=== PATIENT | female | born 2000 | race Caucasian/White ===

== ENCOUNTER 2021-06-09 09:52 | Outpatient (CLI) | payer OTHER ==
[2021-06-09 09:59] LABS: BILIRUBIN,URINE NEGATIVE (NEGATIVE); GLUCOSE, URINE (UA) NEGATIVE (NEGATIVE); KETONES,URINE (UA) NEGATIVE (NEGATIVE); LEUKOCYTE ESTERASE, URINE NEGATIVE (NEGATIVE); NITRITE,URINE NEGATIVE (NEGATIVE); OCCULT BLOOD,URINE NEGATIVE (NEGATIVE); PROTEIN,URINE NEGATIVE (NEGATIVE); UROBILINOGEN,URINE 0.2 (NORMAL) E.U./dL (NORMAL)
[2021-06-09 10:00] LABS: CLARITY,URINE CLEAR (CLEAR)
== END 2021-06-09 09:53 | disposition home or self-care (01) ==
LOC: LAB 09:52
PROVIDERS: ATTEND Obstetrics & Gynecology
DX: Z32.01 Encounter for pregnancy test, result positive (principal)
CPT/HCPCS: 81001; 81003; 87086

== ENCOUNTER 2021-06-28 16:56 | Outpatient (CLI) | payer OTHER ==
--- NOTE | 2021-06-29 12:48 | Ultrasound Report ---
PROCEDURE: OB First Trimester INDICATIONS: positive test OUTSIDE/PRIOR DATING DATA: Last menstrual period (LMP): Unknown. LMP-based estimated date of delivery (STACI): Unknown LMP. First dating scan (date and location): 06/28/2021. Estimated date of delivery (STACI) from first dating scan: 02/02/2022. The below data below was generated using the ultrasound STACI of 02/02/2022 TECHNIQUE: Real-time scanning was performed of the fetus and maternal pelvic organs, with image documentation. COMPARISON: None FINDINGS: A single viable intrauterine is seen with a heart rate of 162. An adjac ent 2.4 x 1.1 x 1.4 cm subchorionic hemorrhage is noted. Friedens-rump length: 2.1 cm. 8 weeks 5 days. Mean gestational sac diameter: 3.3 cm. 8 weeks 3 days. Measurement variability in dating: +/- 4 weeks by LMP, +/- 7 days by mean sac diameter (use before 6 weeks gestation if crown-rump length not able to be measured), +/- 5 days by crown-rump length (6-12 weeks gestation). Maternal organs: There is a small amount of free fluid. IMPRESSION: Single live intrauterine with a gestational age of 8 weeks 5 days by crown-rump length. Reviewed by: Terrence Gibbs on 06/29/2021 12:47 PM PDT Approved by: Terrence Gibbs on 06/29/2021 12:47 PM PDT Station ID: [id number]
== END 2021-06-28 16:57 | disposition home or self-care (01) ==
LOC: DI 16:56
PROVIDERS: ATTEND Obstetrics & Gynecology
DX: Z32.01 Encounter for pregnancy test, result positive (principal)

== ENCOUNTER 2021-06-30 08:00 | Outpatient (CLI) | payer OTHER ==
[2021-07-02 00:15] LABS: CHLAMYDIA TRACHOMATIS DNA NEGATIVE (NEGATIVE); NEISSERIA GONORRHOEAE DNA NEGATIVE (NEGATIVE); TRICHOMONAS VAGINALIS DNA NEGATIVE (NEGATIVE)
== END 2021-06-30 23:59 | disposition home or self-care (01) ==
LOC: LAB.WC 08:00
PROVIDERS: ATTEND Obstetrics & Gynecology
DX: Z11.3 Encounter for screening for infections with a predominantly sexual mode of transmission (principal)
CPT/HCPCS: 87491; 87591; 87661

== ENCOUNTER 2021-11-10 15:46 | Outpatient (CLI) | payer OTHER ==
[2021-11-10 17:12] LABS: HCT - HEMATOCRIT 33.3 % (37.0-47.0); HGB - HEMOGLOBIN 11.3 g/dL (12.0-16.0); MEAN CORPUSCULAR HEMOGLOBIN 31.8 pg (27.0-31.0); MEAN CORPUSCULAR HGB CONC 33.9 g/dL (32.0-36.0); MEAN CORPUSCULAR VOLUME 93.8 fL (81.0-99.0); MEAN PLATELET VOLUME 11.8 fL (7.9-10.8); RED BLOOD COUNT 3.55 10^6/uL (4.20-5.40); RED CELL DISTRIBUTION WIDTH 12.8 % (12.0-15.0); WHITE BLOOD COUNT 10.9 x10^3/uL (4.8-10.8)
== END 2021-11-10 15:47 | disposition home or self-care (01) ==
LOC: LAB 15:46
PROVIDERS: ATTEND Obstetrics & Gynecology
DX: Z34.90 Encounter for supervision of normal pregnancy, unspecified, unspecified trimester (principal); Z36.89 Encounter for other specified antenatal screening
CPT/HCPCS: 36415; 82950; 85027

== ENCOUNTER 2021-12-08 06:44 | Outpatient (CLI) | payer OTHER ==
--- NOTE | 2021-12-08 11:46 | Ultrasound Report ---
PROCEDURE: OB F/U or Repeat INDICATIONS: EXCESSIVE WEIGHT GAIN IN OUTSIDE/PRIOR DATING DATA: Last menstrual period (LMP): Unknown. LMP-based estimated date of delivery (STACI): 02/02/2022. First dating scan (date and location): 06/28/2021. Estimated date of delivery (STACI) from first dating scan: 02/02/2022. The below data below was generated using the ultrasound STACI of 02/02/2022 TECHNIQUE: Real-time scanning was performed of the fetus, with image documentation and biometric measurements. COMPARISON: None. FINDINGS: General: A single living intrauterine gestation is present. Presentation: Cephalic Placenta: Placental position is anterior, without previa. Amniotic fluid index: 13.1 cm. heart rate: 38 beats per minute. Maternal cervical canal: The imaged biometrics: Biparietal diameter: 8.4 cm. 33 weeks 5 days Head circumference: 30.3 cm. 33 weeks 5 days Abdominal circumference: 33.3 cm. 34 weeks 2 days Femur length: 6.0 cm. 31 weeks 1 day. Estimated gestational age from initial scan: 32 weeks 0 days. Composite gestational age from present scan: 33 weeks 2 days Estimated weight and percentile: 2167 g. 80.6 percentile Measurement variability in biometric dating: +/- 10 days from 12-20 weeks gestation, +/- 2 weeks from 20-30 weeks gestation, +/- 3 weeks at 30 weeks gestation or more. anatomy survey. Neuro: Not evaluated Nuchal skin fold: Not evaluated Face: Not evaluated Spine: Not evaluated Heart: Not evaluated Diaphragm: Diaphragm is intact. Stomach: Left-sided stomach is present. Kidneys: Not evaluated Cord: Not evaluated Bladder: Normal in size. IMPRESSION: 1. Single live intrauterine with an estimated gestational age of 32 weeks 0 days from initi al scan. 2. Estimated weight 2167 g. 80.6 percentile. 3. ANDREW 13.1 cm. Reviewed by: Terrence Gibbs on 12/08/2021 11:45 AM PDT Approved by: Terrence Gibbs on 12/08/2021 11:45 AM PDT Station ID: [id number]
== END 2021-12-08 06:45 | disposition home or self-care (01) ==
LOC: DI 06:44
PROVIDERS: ATTEND Obstetrics & Gynecology
DX: O26.03 Excessive weight gain in pregnancy, third trimester (principal); Z3A.32 32 weeks gestation of pregnancy

== ENCOUNTER 2022-01-12 13:00 | Outpatient (CLI) | payer OTHER | END 2022-01-12 23:59 | disposition home or self-care (01) | LOC: LAB.WC 13:00 | PROVIDERS: ATTEND Obstetrics & Gynecology | DX: Z36.85 Encounter for antenatal screening for Streptococcus B (principal) | CPT/HCPCS: 87797 ==

== ENCOUNTER 2022-01-12 20:17 | Outpatient (CLI) | payer OTHER ==
--- NOTE | 2022-01-13 12:23 | Ultrasound Report ---
PROCEDURE: OB F/U or Repeat INDICATIONS: EXCESSIVE WEIGHT GAIN IN TECHNIQUE: Real-time scanning was performed of the fetus, with image documentation and biometric measurements. Endovaginal scanning: Not performed COMPARISON: 12/08/2021 FINDINGS: General: A single living intrauterine gestation is present. Presentation: Vertex Placenta: Placental position is anterior, without previa. Amniotic fluid index: 10.7 cm, normal for gestational age. heart rate: 136 beats per minute. biometrics: Biparietal diameter: 9.3 cm Head circumference: 34.6 cm Abdominal circumference: 34.5 cm Femur length: 7.1 cm Estimated gestational age from initial scan: 37 weeks zero days Composite gestational age from present scan: 38 weeks one day Estimated weight and percentile: 3372 g, 81st percentile Measurement variability in biometric dating: +/- 10 days from 12-20 weeks gestation, +/- 2 weeks from 20-30 weeks gestation, +/- 3 weeks at 30 weeks gestation or more. Other: Not applicable. IMPRESSION: Single living intrauterine gestation with biometric parameters as detailed above. Reviewed by: Wilson Watters MD on 01/13/2022 12:22 PM PST Approved by: Wilson Watters MD on 01/13/2022 12:22 PM PST Station ID: [id number]
== END 2022-01-12 20:18 | disposition home or self-care (01) ==
LOC: DI 20:17
PROVIDERS: ATTEND Obstetrics & Gynecology
DX: O26.03 Excessive weight gain in pregnancy, third trimester (principal); Z3A.38 38 weeks gestation of pregnancy

== ENCOUNTER 2022-01-15 13:06 | Outpatient (CLI) | payer OTHER ==
[2022-01-15 13:24] VITALS: BP 116/71
[2022-01-15 13:56] LABS: RUPTURE OF MEMBRANES PLUS NEGATIVE (NEGATIVE)
--- NOTE | 2022-01-15 15:55 | PROVIDER PROGRESS NOTE ---
- HPI Chief Complaint: Leakage of vaginal fluid Current : Current EDU 02/02/22 Gestation 37 Weeks and 3 Days 1 Para 0 Vital Signs Temperature 98.2 F 01/15/22 13:23 Heart Rate 89 01/15/22 13:23 Respiratory Rate 17 01/15/22 13:23 Blood Pressure 116/71 01/15/22 13:23 O2 Saturation 100 01/15/22 13:23 Temperature 98.1 F 01/15/22 13:52 Heart Rate 89 01/15/22 13:23 Respiratory Rate 17 01/15/22 13:23 Blood Pressure 116/71 01/15/22 13:23 O2 Saturation 100 01/15/22 13:23 If not protocol: Oxygen Flow, liters/minute - Procedures OB Procedure Performed: NST Diagnosis/Indication for NST: Other NST Procedure: NST Procedure Start Date 01/15/22 Start Time 13:20 Stop Time 13:50 Vibroacoustic Stimulation Used No Patient States Movement Yes EFM: 150s, moderate variability, positive accelerations, no decelerations [place]ar[place]: no contractions NST performed as part of labor evaluation NST reactive/Cat 1 Performed and read 01/15/22 - Plan Plan: 21yo at 37.3w presenting for leaking fluid. She has noticed vaginal fluid since last night and thinks it has continued today. Denies contractions or vaginal bleeding. Good movement. care at [facility] and records reviewed. VSS Exam benign ROMPlus negative Nitrazine negative NST reactive 21yo at 37.3w, false labor - Reactive NST - Follow up as scheduled this week in the office - Labor precautions
== END 2022-01-15 14:15 | disposition home or self-care (01) ==
LOC: WFO 13:06 → FBP 13:07 → WFO 14:15
PROVIDERS: ATTEND Obstetrics & Gynecology
DX: O99.891 Other specified diseases and conditions complicating pregnancy (principal); N89.8 Other specified noninflammatory disorders of vagina; Z3A.37 37 weeks gestation of pregnancy
CPT/HCPCS: 59025; 84112; 99214

== ENCOUNTER 2022-01-18 03:51 | Inpatient (IN) | payer OTHER, MEDICAID ==
[2022-01-18 05:09] LABS: RUPTURE OF MEMBRANES PLUS POSITIVE (NEGATIVE)
[2022-01-18] MEDS ORDERED: NIFEdipine 10 MG CAPSULE PO PRN (05:30)
[2022-01-18] MEDS ORDERED: METHYLERGONOVINE 0.2 MG/ML VIAL IM PRN (05:30)
[2022-01-18] MEDS ORDERED: ONDANSETRON 4 MG/2 ML VIAL IVP PRN (05:30)
[2022-01-18] MEDS ORDERED: CARBOPROST TROMETHAMINE 250 MCG/ML AMP IM PRN (05:30)
[2022-01-18] MEDS ORDERED: LABETALOL 20 MG/4 ML SYRINGE IVP PRN ×3 (05:30)
[2022-01-18] MEDS ORDERED: hydrALAZINE INJ 20 MG/ML VIAL IVP PRN ×2 (05:30)
[2022-01-18] MEDS ORDERED: TRANEXAMIC ACID IN NACL 1,000 MG/100 ML BAG IV PRN (05:30)
[2022-01-18] MEDS ORDERED: TERBUTALINE 1 MG/ML VIAL SUBQ PRN (05:30)
[2022-01-18] MEDS ORDERED: OXYTOCIN 10 UNIT/ML VIAL IM PRN (05:30)
[2022-01-18] MEDS ORDERED: fentaNYL 100 MCG/2 ML VIAL IVP PRN (05:30)
[2022-01-18] MEDS ORDERED: SODIUM CHLORIDE FLUSH 0.9% 10 ML SYRINGE IVP PRN (05:30)
[2022-01-18] MEDS ORDERED: miSOPROStoL 200 MCG TABLET BC PRN (05:30)
[2022-01-18] MEDS ORDERED: lidocaine 1% 20 ML MDV ID PRN (05:30)
[2022-01-18] MEDS ORDERED: miSOPROStoL 200 MCG TABLET PR PRN (05:30)
[2022-01-18] MEDS ORDERED: LACTATED RINGERS 1,000 ML IV SCH ×2 (06:00→18:00)
[2022-01-18] MEDS ORDERED: SODIUM CHLORIDE FLUSH 0.9% 10 ML SYRINGE IVP SCH (06:00)
[2022-01-18 07:45] LABS: ALBUMIN 2.8 g/dL (3.2-5.5); ALBUMIN/GLOBULIN RATIO 0.8 (1.0-2.2); BILIRUBIN,TOTAL 0.5 mg/dL (0.2-1.0); CALCIUM 9.2 mg/dL (8.5-10.3); CREATININE 0.5 mg/dL (0.4-1.0); POTASSIUM 3.9 mmol/L (3.5-5.0); TOTAL PROTEIN 6.2 g/dL (6.7-8.2)
[2022-01-18 07:46] LABS: BASOPHILS % (AUTO) 0.2 %; EOSINOPHILS % (AUTO) 0.3 %; HCT - HEMATOCRIT 32.4 % (37.0-47.0); LYMPHOCYTES # (AUTO) 2.2 10^3/uL (1.5-3.5); LYMPHOCYTES % (AUTO) 21.7 %; MEAN CORPUSCULAR HEMOGLOBIN 29.6 pg (27.0-31.0); MEAN CORPUSCULAR VOLUME 87.1 fL (81.0-99.0); MEAN PLATELET VOLUME 12.7 fL (7.9-10.8); MONOCYTES # (AUTO) 0.8 10^3/uL (0.0-1.0); MONOCYTES % (AUTO) 7.5 %; PLT - PLATELET COUNT 189 10^3/uL (130-450); RED BLOOD COUNT 3.72 10^6/uL (4.20-5.40)
--- NOTE | 2022-01-18 08:11 | HISTORY & PHYSICAL EXAMINATION ---
Admit History - Visit Reason Visit Reason: Membranes rupture (Premature ROM 0330 01/18) - : 1 Parity: 0 Care: positive: [facility] Risk/History: positive: Labor augmentation, Premature rupture membrane, Other (Excessive weight gain in (56lbs)) Smoking Status: Never smoker - Mother's Labs Mother's Blood Type: positive: O Mother's RH: positive: Positive GBS: positive: Group B Step Negative Rubella Status: positive: Non-immune, Equivocal - Other Maternal History Other Maternal History: Med: Denies Surg: Denies Social: Boyfriend/FOB and patient's mother present, denies AVIS Fam: PGM- Breast cancer, Mother- GDM, Brother- siezures, MGF alcoholism Meds/Allgy - Allergies Allergies/Adverse Reactions: Allergies Allergy/AdvReac Type Severity Reaction Status Date / Time amoxicillin Allergy Rash Verified 01/18/22 06:12 Review of Systems - All Other Systems All Other Systems: reports: Reviewed and negative Physical - Abdominal Exam Vital Signs: Temp Pulse Resp BP Pulse Ox O2 Flow Rate 98.2 F 84 18 120/80 01/18/22 05:38 01/18/22 05:38 01/18/22 05:38 01/18/22 05:38 Contraction Frequency (min/apart): 4 Contraction Intensity: positive: Mild to moderate Uterine Resting Tone: positive: Soft - Monitoring Heart Rate Baseline: 140 Strip Review: positive: Category I - Presentation Presentation: positive: Vertex (3400g Cephalic Placenta anterior) - Vaginal Exam Membranes: positive: Membranes ruptured (01/18 330) Dilation (in cm): 1 Plan for Labor - Plan For Labor I expect patient to be DC'd or transferred within 96 hours.: Yes Plan for Labor: 21yo at 37.6w by 8w US admitted for premature rupture of membranes - Admit - PROM 01/18 330 - Discussed plan with patient, plan for misoprostol this am - Recheck cervix this afternoon/evening - Cat 1, continue to monitor
[2022-01-18] MEDS ORDERED: miSOPROStoL 100 MCG TABLET BC SCH (09:00)
[2022-01-18] MEDS ORDERED: ROPIVACAINE 0.2% 200 MG/100 ML BAG EP ONE (11:25)
[2022-01-18] MEDS ORDERED: SODIUM CHLORIDE 0.9% 10 ML VIAL IVP ONE (11:49)
[2022-01-18] MEDS ORDERED: fentaNYL 100 MCG/2 ML VIAL ONE (11:49)
[2022-01-18] MEDS ORDERED: ePHEDrine 50 MG/ML VIAL IVP PRN (11:54)
[2022-01-18] MEDS ORDERED: NALOXONE 0.4 MG/ML VIAL IVP PRN (11:54)
[2022-01-18] MEDS ORDERED: ROPIVACAINE 0.2% 200 MG/100 ML BAG EP PRN (11:54)
--- NOTE | 2022-01-18 11:54 | ANESTHESIA ---
Pre-Anesthesia VS, & Labs - Diagnosis active labor - Procedure vaginal delivery Vital Signs: Temp Pulse Resp BP Pulse Ox O2 Flow Rate 36.8 C 84 18 120/80 01/18/22 05:38 01/18/22 05:38 01/18/22 05:38 01/18/22 05:38 Height: 5 ft 8 in Weight (kg): 97.522 kg Body Mass Index: 32.6 BMI Classification: Obese - NPO Other (clear liquids) - Is Patient ?: Yes - Lab Results Current Lab Results: Laboratory Tests 01/18/22 07:20: Sodium 134 L, Potassium 3.9, Chloride 104, Carbon Dioxide 20 L, Anion Gap 10.0, BUN 9, Creatinine 0.5, Estimated GFR (MDRD) 153, Glucose 83, Calcium 9.2, Total Bilirubin 0.5, AST 19, ALT 16, Alkaline Phosphatase 127 H, Total Protein 6.2 L, Albumin 2.8 L, Globulin 3.4, Albumin/Globulin Ratio 0.8 L 01/18/22 07:20: WBC 10.0, RBC 3.72 L, Hgb 11.0 L, Hct 32.4 L, MCV 87.1, MCH 29.6, MCHC 34.0, RDW 13.0, Plt Count 189, MPV 12.7 H, Neut # (Auto) 7.0 H, Lymph # (Auto) 2.2, [place] # (Auto) 0.8, Eos # (Auto) 0.0, Baso # (Auto) 0.0, Absolute Nucleated RBC 0.00, Nucleated RBC % 0.0 01/18/22 07:20: Blood Type O POSITIVE, Antibody Screen NEGATIVE Lab results reviewed: Yes Fish Bones: 01/18/22 07:20 01/18/22 07:20 Home Medications and Allergies Active Medications Carboprost Tromethamine (Carboprost Tromethamine 250 Mcg/Ml Amp) 250 mcg IM .ONCE PRN PRN Reason: Hemorrhage Fentanyl (Fentanyl 100 Mcg/2 Ml Vial) 50 mcg IVP Q1H PRN PRN Reason: Severe Pain (score 7-10) Hydralazine HCl (Hydralazine Inj 20 Mg/Ml Vial) 5 - 10 mg IVP Q20M PRN; Protocol PRN Reason: SBP> or= 160 OR DBP> or= 110 Hydralazine HCl (Hydralazine Inj 20 Mg/Ml Vial) 10 mg IVP .ONCE PRN; Protocol PRN Reason: SBP> or= 160 OR DBP> or= 110 Oxytocin/Sodium Chloride (Pitocin/Sodium Chloride) 500 mls @ 999 mls/hr IV PRN PRN; Protocol PRN Reason: POST- HEMORR PREVENTION Tranexamic Acid (Tranexamic 1,000 Mg/100ml-Nacl) 1,000 mg in 100 mls @ 600 mls/hr IV Q30M PRN PRN Reason: EBL >1200mL and within 3hr Lactated Ringer's (Lr) 1,000 mls @ 125 mls/hr IV .Q8H JEREMIAH Oxytocin/Sodium Chloride (Pitocin/Sodium Chloride) 500 mls @ 2 mls/hr IV TITR JEREMIAH; Protocol Labetalol HCl (Labetalol 20 Mg/4 Ml Syringe) 20 - 80 mg IVP Q10M PRN; Protocol PRN Reason: SBP> or= 160 OR DBP> or= 110 Labetalol HCl (Labetalol 20 Mg/4 Ml Syringe) 20 mg IVP .ONCE PRN; Protocol PRN Reason: SBP> or= 160 OR DBP> or= 110 Labetalol HCl (Labetalol 20 Mg/4 Ml Syringe) 20 - 40 mg IVP Q10M PRN; Protocol PRN Reason: SBP> or= 160 OR DBP> or= 110 Lidocaine HCl (Lidocaine 1% 20 Ml Mdv) 20 ml ID .ONCE PRN PRN Reason: PERINEAL REPAIR Stop: 01/21/22 05:31 Methylergonovine Maleate (Methylergonovine 0.2 Mg/Ml Vial) 0.2 mg IM .ONCE PRN PRN Reason: Hemorrhage Misoprostol (Misoprostol 200 Mcg Tablet) 600 mcg BC .ONCE PRN PRN Reason: Hemorrhage Misoprostol (Misoprostol 200 Mcg Tablet) 800 mcg WV .ONCE PRN PRN Reason: Hemorrhage Misoprostol (Misoprostol 100 Mcg Tablet) 50 mcg BC Q4H JEREMIAH Last Admin: 01/18/22 09:41 Dose: 50 mcg Nifedipine (Nifedipine 10 Mg Capsule) 10 - 20 mg PO Q20M PRN; Protocol PRN Reason: SBP> or= 160 OR DBP> or= 110 Ondansetron HCl (Ondansetron 4 Mg/2 Ml Vial) 4 mg IVP PRN PRN PRN Reason: Nausea / Vomiting Oxytocin (Oxytocin 10 Unit/Ml Vial) 10 unit IM .ONCE PRN PRN Reason: Step One if no IV access. Sodium Chloride (Sodium Chloride Flush 0.9% 10 Ml Syringe) 10 ml IVP PRN PRN PRN Reason: NEEDED PER PROVIDER ORDERS Sodium Chloride (Sodium Chloride Flush 0.9% 10 Ml Syringe) 10 ml IVP Q8H JEREMIAH Terbutaline Sulfate (Terbutaline 1 Mg/Ml Vial) 0.25 mg SUBQ .ONCE PRN PRN Reason: Tachystole Allergies/Adverse Reactions: Allergies Allergy/AdvReac Type Severity Reaction Status Date / Time amoxicillin Allergy Rash Verified 01/18/22 06:12 Anes History & Medical History - Anesthetic History Family history of Anesthesia Complications: Denies Family history of Malignant Hyperthermia: Denies - Medical History Cardiovascular: reports: None Pulmonary: reports: None Gastrointestinal: reports: None Urinary: reports: None Neuro: reports: None Musculoskeletal: reports: None Endocrine/Autoimmune: reports: None Blood Disorders: reports: None Skin: reports: None Smoking Status: Never smoker Psychosocial: reports: No issues indicated History of Cancer?: No - Obstetrical History : 1 Parity: 0 Events: reports: Labor augmentation, Premature rupture membrane, Other (Excessive weight gain in (56lbs)) Exam General: Alert, Oriented x3, Cooperative, No acute distress Dental: WNL Mouth Openin Fingerbreadth Neck Mobility: Normal Mallampati classification: II Thyromental Distance: 4-6 cm Mental/Cognitive Status: Alert/Oriented X3, Normal for patient Plan Anesthesia Type: Epidural Consent for Procedure(s) Verified and Reviewed: Yes Code Status: Attempt Resuscitation ASA classification: 2-Mild systemic disease Is this case an emergency?: No
[2022-01-18] MEDS ORDERED: OXYTOCIN/SODIUM CHLORIDE 500 ML IV SCH (12:00)
[2022-01-18] MEDS: OXYTOCIN/SODIUM CHLORIDE 500 ML IV PRN ×2 (16:25→17:35)
[2022-01-18] MEDS ORDERED: DIPHENOX/ATROPINE 2.5/0.025 MG TABLET PO PRN (17:11)
[2022-01-18] MEDS ORDERED: HYDROCORTISONE 1% CREAM 28 GM TUBE PR PRN (17:36)
[2022-01-18] MEDS ORDERED: MEASLES,MUMPS & RUBELLA VACC 0.5 ML VIAL SUBQ ONE (17:36)
--- NOTE | 2022-01-18 17:44 | DELIVERY NOTE ---
Delivery Note - Infant Delivery Method Infant Delivery Method: positive: Spontaneous vaginal delivery - Cervical Ripening Method Cervical Ripening Method: positive: Misoprostil - Presentation Presentation: positive: Vertex, ROP - right occiput posterior - Nuchal Cord Nuchal Cord: positive: None - Anesthetic Anesthetic Type: - Amniotic Fluid Description Amniotic Fluid Description: positive: Clear - Episiotomy Type Episiotomy Type: positive: None - Laceration Laceration: positive: 2nd degree (Midline, vaginal) - Suture Suture Type: positive: Vicryl Suture Size: positive: 3-0 - Delivery Outcome Delivery Outcome: positive: Livebirth - Wisdom: positive: Placed in direct skin contact with mother, Stimulated, Warmed, [place] used sex: positive: Female - Cord Cord: positive: 3 vessels - Placenta Placenta: positive: Intact, Spontaneous - Estimated Blood Loss Estimated Blood Loss (in cc): 1,500 - Post Delivery Events Post Delivery Events: positive: Hemorrhage - Delivery Comments (Free Text/Narrative) Delivery Comments (Free Text/Narrative): 10/+1, maternal pushing with good efforts. Head delivered, ROP. Body followed with ease. placed on mother's abdomen. Fundus firm. Vagina and perineum inspected- second degree midline perineal laceration, repaired with 3-0 Vicryl. Vaginal bleeding noted, exam performed and clots expressed from lower uterine segment. Continued bleeding noted. TXA, misoprostol, metherine, hemabate given due to continued bleeding. US performed and no retained products noted. Exam repeated and bleeding decreased. Hemostasis noted. VSS. Continue to monitor bleeding. h/h/fibrinogen ordered. Otherwise patient is and doing well with family at bedside. QBL 1500cc.
[2022-01-18 17:47] LABS: BASOPHILS % (AUTO) 0.2 %; HCT - HEMATOCRIT 31.4 % (37.0-47.0); HGB - HEMOGLOBIN 10.3 g/dL (12.0-16.0); LYMPHOCYTES # (AUTO) 1.4 10^3/uL (1.5-3.5); LYMPHOCYTES % (AUTO) 8.2 %; MEAN CORPUSCULAR HEMOGLOBIN 28.8 pg (27.0-31.0); MEAN CORPUSCULAR HGB CONC 32.8 g/dL (32.0-36.0); MEAN CORPUSCULAR VOLUME 87.7 fL (81.0-99.0); MEAN PLATELET VOLUME 12.5 fL (7.9-10.8); MONOCYTES % (AUTO) 5.6 %; NEUTROPHILS # (AUTO) 14.5 10^3/uL (1.5-6.6); NEUTROPHILS % (AUTO) 85.6 %; PLT - PLATELET COUNT 176 10^3/uL (130-450); RED BLOOD COUNT 3.58 10^6/uL (4.20-5.40); RED CELL DISTRIBUTION WIDTH 12.9 % (12.0-15.0); WHITE BLOOD COUNT 16.9 x10^3/uL (4.8-10.8)
[2022-01-18] MEDS: ACETAMINOPHEN 500 MG TABLET PO SCH (18:02)
[2022-01-18] MEDS: IBUPROFEN 800 MG TABLET PO SCH ×2 (18:02→23:47)
[2022-01-18] MEDS ORDERED: VARICELLA VACCINE LIVE/PF 1,350 UNIT/0.5 ML VIAL SUBQ ONE (18:20)
[2022-01-18] MEDS ORDERED: CEFOTETAN DISODIUM 1 GM in SODIUM CHLORIDE 0.9% MINIBAG 100 ML IV ONE (19:00)
--- NOTE | 2022-01-18 19:43 | Labor Flowsheet ---
Labor Flowsheet Datetime Report Generated by CPN: 01/18/2022 19:43 Datetime: 01/18/2022 18:34 Pulse: 74 SpO2 (%): 100 Datetime: 01/18/2022 18:30 Stage of : Recovery VITAL SIGNS NBP Sys/Robyn/Mean (mmHg): 96 : 65 : 71 Datetime: 01/18/2022 16:19 STAGE 2 Pushing: Coached on Pushing Pushing Position: Pushing with Contractions Pushing Progress: Descent with Pushing; Perineal Bulging; Rectal Bulging; Molding Noted; Presenting Part Visible; with Pushing LaborFlag: Labor Datetime: 01/18/2022 14:53 COMMUNICATION Communication: Provider at Bedside Datetime: 01/18/2022 14:30 Temperature (C): 36.6 UTERINE ACTIVITY Monitor Mode: External Monitor Interventions for UA: Jette Adjusted Quality: Moderate Resting Tone (Palpate): Relaxed Contraction Comments: unable to evaluate FHR Baseline Rate : 140 FHR Baseline Changes: No Baseline Change Variability: Minimal - Undetectable to <=5 bpm Decelerations: Variable Actions for Decelerations: IV Bolus; Provider Notified; Other Category: Category II Patient Position/Activity: High Fowlers Datetime: 01/18/2022 14:05 VAGINAL EXAM Dilatation (cm): 10.0 Effacement (%): 100 Station: 1 Exam by: Dr. Mendoza Vaginal Exam Comments: Pt in high fowlers allowing gravity to descend baby. Will start pushing shor tly I/O Interventions: Ice Chips Given Communication Comments: Dr. Mendoza Here to check pt Datetime: 01/18/2022 14:00 Frequency (min): 2-3 Duration (sec): 70-100 Pattern: Normal: <= 5 Contractions in 10 Minutes ASSESSMENT A Monitor Mode: Sock Lining Examiner Interventions for FHR: Ultrasound Adjusted Comments: Notified provider of late decels Datetime: 01/18/2022 13:44 PATIENT CARE IV/Blood Work: IV Bolus Started Notification Reason: Status Datetime: 01/18/2022 12:30 Accelerations: None Oxygen Method: Room Air Datetime: 01/18/2022 11:50 ANESTHESIA Anesthesia Plans: Epidural Epidural Procedure Other: Single Dose Datetime: 01/18/2022 11:41 Epidural Procedure: Completed Datetime: 01/18/2022 11:31 Anesthesia Comments: Lidocaine Datetime: 01/18/2022 11:22 Respirations: 16 PROCEDURE TIME OUT Procedure Verify: Correct Patient Identity; Correct Side and Site are Marked; Accurate Procedure Co nsent Form; Agreement on Procedure to be Done; Correct Patient Position Epidural Positioning: Sitting Datetime: 01/18/2022 10:51 Medication Comments: Nitrous gas started Datetime: 01/18/2022 10:34 Patient Care Comments: With peanut ball Datetime: 01/18/2022 09:40 MEDICATIONS Cervical Ripening Agents: Cytotec @ Datetime: 01/18/2022 06:09 Membranes Ruptured Date/Time: 01/18/2022 03:30 Membranes Rupture Method: Spontaneous Amniotic Fluid Color: Clear Amniotic Fluid Amount: Moderate Amniotic Fluid Odor: Normal
[2022-01-19] MEDS: ACETAMINOPHEN 500 MG TABLET PO SCH ×3 (04:16→21:15)
[2022-01-19] MEDS: DOCUSATE SODIUM 100 MG CAPSULE PO SCH ×3 (04:54→21:15)
[2022-01-19] MEDS: IBUPROFEN 800 MG TABLET PO SCH ×2 (06:11→13:02)
[2022-01-19 06:28] LABS: BASOPHILS % (AUTO) 0.1 %; EOSINOPHILS # (AUTO) 0.1 10^3/uL (0.0-0.7); EOSINOPHILS % (AUTO) 0.4 %; HCT - HEMATOCRIT 23.4 % (37.0-47.0); HGB - HEMOGLOBIN 7.8 g/dL (12.0-16.0); LYMPHOCYTES # (AUTO) 2.2 10^3/uL (1.5-3.5); LYMPHOCYTES % (AUTO) 15.5 %; MEAN CORPUSCULAR HGB CONC 33.3 g/dL (32.0-36.0); MONOCYTES # (AUTO) 1.2 10^3/uL (0.0-1.0); MONOCYTES % (AUTO) 8.6 %; NEUTROPHILS # (AUTO) 10.7 10^3/uL (1.5-6.6); PLT - PLATELET COUNT 145 10^3/uL (130-450); RED CELL DISTRIBUTION WIDTH 13.2 % (12.0-15.0); WHITE BLOOD COUNT 14.2 x10^3/uL (4.8-10.8)
[2022-01-19] MEDS: WITCH HAZEL/GLYCERIN 1 PAD TOP PRN (09:00)
--- NOTE | 2022-01-19 09:06 | ANESTHESIA POST OP EVALUATION ---
Anesthesia Post Eval - Post Anesthesia Eval Vitals: Last Vital Signs Temp 36.6 C 01/19/22 08:16 Pulse 78 01/19/22 08:16 Resp 18 01/19/22 08:16 BP 114/64 01/19/22 08:16 Pulse Ox 96 01/19/22 08:16 O2 Flow Rate CV Function Including HR & BP: Stable Pain Control: Satisfactory Nausea & Vomiting: Negative Mental Status: Baseline Respiratory Status: Airway Patent Hydration Status: Satisfactory Anesthesia Complications: None - Other Details/Therapies Other Details/Therapies: Patient satisfied with labor analgesia. Full ROM returned.
[2022-01-19] MEDS ORDERED: IRON DEXTRAN 1,000 MG in SODIUM CHLORIDE 0.9% 250 ML IV ONE (09:30)
--- NOTE | 2022-01-19 16:15 | PROVIDER PROGRESS NOTE ---
Subjective - Prog Note Date Prog Note Date: 01/19/22 - Subjective Subjective: Patient doing well. Denies chest pain and shortness of breath. Lochia = menses. Tolerating PO, spontaneously voiding. Patient complaining of pain in right lower extremity calf. Objective - Vital Signs/Intake & Output Reviewed Vital Signs: Yes Vital Signs: Vital Signs x48h Temp Pulse Resp BP Pulse Ox 01/19/22 08:16 97.9 F 78 18 114/64 96 Intake & Output: Intake & Output 01/16/22 01/17/22 01/18/22 01/19/22 23:59 23:59 23:59 23:59 Intake Total 2200 520 Output Total 1095 Balance 1105 520 - Objective General Appearance: positive: No acute distress Eyes Bilateral: positive: Normal inspection Respiratory: positive: Chest non-tender, No respiratory distress, Breath sounds nml Cardiovascular: positive: Regular rate & rhythm, No murmur, No gallop Abdomen: positive: Non-tender (firm fundus below umbilicus) Skin: positive: Color nml Extremities: positive: Other (pain on palpation of right lower calf) Neurologic/Psychiatric: positive: Oriented x3 - Lab Results Fish Bones: 01/19/22 06:11 01/18/22 07:20 Other Labs: Lab Results x24hrs 01/19/22 01/18/22 01/18/22 Range/Units 06:11 17:35 17:35 WBC 14.2 H 16.9 H (4.8-10.8) x10^3/uL RBC 2.60 L 3.58 L (4.20-5.40) 10^6/uL Hgb 7.8 L 10.3 L (12.0-16.0) g/dL Hct 23.4 L 31.4 L (37.0-47.0) % MCV 90.0 87.7 (81.0-99.0) fL MCH 30.0 28.8 (27.0-31.0) pg MCHC 33.3 32.8 (32.0-36.0) g/dL RDW 13.2 12.9 (12.0-15.0) % Plt Count 145 176 (130-450) 10^3/uL MPV 12.0 H 12.5 H (7.9-10.8) fL Neut # (Auto) 10.7 H 14.5 H (1.5-6.6) 10^3/uL Lymph # (Auto) 2.2 1.4 L (1.5-3.5) 10^3/uL [place] # (Auto) 1.2 H 1.0 (0.0-1.0) 10^3/uL Eos # (Auto) 0.1 0.0 (0.0-0.7) 10^3/uL Baso # (Auto) 0.0 0.0 (0.0-0.1) 10^3/uL Absolute Nucleated RBC 0.00 0.00 x10^3/uL Nucleated RBC % 0.0 0.0 /100WBC Fibrinogen 605 H (220-496) mg/dL Assessment/Plan - Problem List (1) Vaginal delivery Impression: Patient had hemorrhage, bleeding is now within normal limits received IV iron- asymptomatic acute blood loss anemia Patient doing well today U/S right lower extremity pending. Discharge to home if normal
--- NOTE | 2022-01-19 17:47 | Ultrasound Report ---
PROCEDURE: Duplex Ext Veins Right INDICATIONS: r/o DVT TECHNIQUE: Real-time imaging, as well as color and pulse Doppler interrogation, were performed of the lower extr emity deep veins from the inguinal ligament to the popliteal fossa. COMPARISON: None. FINDINGS: The deep veins are normally compressible, and free of intraluminal thrombus. Color and pu lse Doppler demonstrate normal phasic intraluminal flow. There is normal augmentation response to di stal compression maneuver. Fully occlusive thrombosed appearance of the greater saphenous vein begin iman at the distal thigh and extending to the proximal calf. IMPRESSION: No deep venous thrombosis. Thrombosed greater saphenous vein beginning involving a segme nt extending from the distal thigh to proximal calf. Reviewed by: Wilson Watters MD on 01/19/2022 4:46 PM [facility] Approved by: Wilson Watters MD on 01/19/2022 4:46 PM [facility] Station ID: [id number]
--- NOTE | 2022-01-19 18:44 | PROVIDER PROGRESS NOTE ---
Subjective - Prog Note Date Prog Note Date: 01/19/22 Objective - Vital Signs/Intake & Output Intake & Output: Intake & Output 01/16/22 01/17/22 01/18/22 01/19/22 23:59 23:59 23:59 23:59 Intake Total 2200 520 Output Total 1095 Balance 1105 520 - Lab Results Fish Bones: 01/19/22 06:11 01/18/22 07:20 Other Labs: Lab Results x24hrs 01/19/22 Range/Units 06:11 WBC 14.2 H (4.8-10.8) x10^3/uL RBC 2.60 L (4.20-5.40) 10^6/uL Hgb 7.8 L (12.0-16.0) g/dL Hct 23.4 L (37.0-47.0) % MCV 90.0 (81.0-99.0) fL MCH 30.0 (27.0-31.0) pg MCHC 33.3 (32.0-36.0) g/dL RDW 13.2 (12.0-15.0) % Plt Count 145 (130-450) 10^3/uL MPV 12.0 H (7.9-10.8) fL Neut # (Auto) 10.7 H (1.5-6.6) 10^3/uL Lymph # (Auto) 2.2 (1.5-3.5) 10^3/uL [place] # (Auto) 1.2 H (0.0-1.0) 10^3/uL Eos # (Auto) 0.1 (0.0-0.7) 10^3/uL Baso # (Auto) 0.0 (0.0-0.1) 10^3/uL Absolute Nucleated RBC 0.00 x10^3/uL Nucleated RBC % 0.0 /100WBC Assessment/Plan - Problem List (1) Vaginal delivery Impression: 1. Ultrasound: thrombus of superficial saphenous vein extending from distal thigh to proximal calf Discussed management with IM hospitalist Dr. Scott who recommends lovenox due to size of thrombus. 1.5 mg/kg daily lovenox per pharmacy recommendations. Discussed plan of care with patient and all questions answered.
[2022-01-19] MEDS ORDERED: ENOXAPARIN 150 MG/ML SYRINGE SUBQ SCH (20:19)
[2022-01-20] MEDS: ACETAMINOPHEN 500 MG TABLET PO SCH (05:12)
--- NOTE | 2022-01-20 08:47 | PROVIDER PROGRESS NOTE ---
Subjective - Prog Note Date Prog Note Date: 01/20/22 - Subjective Subjective: Patient is doing well this morning. She denies chest pain and shortness of breath. Lochia < menses. Spontaneously voiding, tolerating regular diet. Pt has history of anxiety and states she felt overwhelmed last night but is doing okay this morning Objective - Vital Signs/Intake & Output Reviewed Vital Signs: Yes Vital Signs: Vital Signs x48h Temp Pulse Resp BP Pulse Ox 01/20/22 04:50 98.1 F 59 L 16 98/51 L 99 Intake & Output: Intake & Output 01/17/22 01/18/22 01/19/22 01/20/22 23:59 23:59 23:59 23:59 Intake Total 2200 520 200 Output Total 1095 Balance 1105 520 200 - Objective General Appearance: positive: No acute distress, Alert Respiratory: positive: No respiratory distress, Breath sounds nml Cardiovascular: positive: Regular rate & rhythm. negative: No murmur Abdomen: positive: Non-tender (firm fundus below the umbilicus) Skin: positive: Color nml - Lab Results Fish Bones: 01/19/22 06:11 01/18/22 07:20 Assessment/Plan - Problem List (1) Vaginal delivery Impression: 1. PPD#2 Patient doing well 2. hemorrhage -s/p IV Iron -asymptomatic -bleeding within normal limits 3. superficial thrombophlebitis -discussed with internal medicine with recommendation to treat based on size -patient started on lovenox last night, she was very anxious about injection. Discussed risks, benefits, alternatives, and patient would like [facility] -close follow up with Dr. Wu 4. Anxiety discussed signs/symptoms of depression and reasons to call or return
[2022-01-20 09:02] VITALS: BP 126/79
[2022-01-20] MEDS: DOCUSATE SODIUM 100 MG CAPSULE PO SCH (09:24)
[2022-01-20] MEDS: WITCH HAZEL/GLYCERIN 1 PAD TOP PRN (09:25)
--- NOTE | 2022-01-20 10:24 | DISCHARGE SUMMARY ---
Discharge Summary Discharge Date: 01/20/22 Discharging Provider: Cynthia Primary Care Provider: Maryam Wu Code Status: Attempt Resuscitation Condition at Discharge: Good Discharge Disposition: 01 Home, Self Care - DIAGNOSES Admission Diagnoses: labor Discharge Diagnoses with Status of Each Condition: normal spontaneous vaginal delivery superficial thrombophlebitis - HPI History of Present Illness: Patient presented with spontaneous rupture of membranes. She had a normal spontaneous vaginal delivery complicated by hemorrhage of 1,500 mL. On PPD#1 patient was complaining of pain and tenderness of right lower extremity. Ultrasound was signficant for thrombosis of greater saphenous vein. Discussed with internal medicine and decision made for anticoagulation secondary to size and extension above the knee. Patient was started on lovenox. She had considerable anxiety about injections and is not . After discussing risks, benefits, and alternatives, patient was discharged to home on xarelto. - HOSPITAL COURSE Hospital Course: Patient presented with spontaneous rupture of membranes. She had a normal spontaneous vaginal delivery complicated by hemorrhage of 1,500 mL. On PPD#1 patient was complaining of pain and tenderness of right lower extremity. Ultrasound was signficant for thrombosis of greater saphenous vein. Discussed with internal medicine and decision made for anticoagulation secondary to size and extension above the knee. Patient was started on lovenox. She had considerable anxiety about injections and is not . After discussing risks, benefits, and alternatives, patient was discharged to home on xarelto. Patient has history of anxiety, discussed signs/symptoms of depression. Patient declines treatment and advised to call or come in if symptomatic. - ALLERGIES Allergies/Adverse Reactions: Allergies Allergy/AdvReac Type Severity Reaction Status Date / Time amoxicillin Allergy Rash Verified 01/18/22 06:12 - PHYSICAL EXAM AT DISCHARGE General Appearance: positive: No acute distress, Alert Respiratory: positive: No respiratory distress, Breath sounds nml Cardiovascular: positive: Regular rate & rhythm Abdomen: positive: Non-tender (firm fundus below umbilicus) Skin: positive: Color nml Extremities: positive: Other (right lower extremity tender behind knee) - LABS Result Diagrams: 01/19/22 06:11 01/18/22 07:20 - FOLLOW UP Follow Up: follow up with Dr. Wu
--- NOTE | 2022-01-20 10:34 | Discharge Plan ---
Discharge Plan Problem Reviewed?: Yes Disposition: Home, Self Care Condition: Good Diet: Regular Activity Restrictions: nothing in the vagina Shower Restrictions: No Driving Restrictions: No No Smoking: If you smoke, Please STOP! Call for help. Follow-up with: Matheus Wu MD [Primary Care Provider] -
[2022-01-20] MEDS ORDERED: MEASLES,MUMPS & RUBELLA VACC 0.5 ML VIAL SUBQ ONE (11:54)
--- NOTE | 2022-01-20 13:09 | Labor Flowsheet ---
Labor Flowsheet Datetime Report Generated by CPN: 01/20/2022 13:09 Datetime: 01/20/2022 08:49 VITAL SIGNS NBP Sys/Robyn/Mean (mmHg): 126 : 79 : 90 Pulse: 77 SpO2 (%): 99 Datetime: 01/18/2022 18:30 Stage of : Recovery Datetime: 01/18/2022 16:19 STAGE 2 Pushing: Coached on Pushing Pushing Position: Pushing with Contractions Pushing Progress: Descent with Pushing; Perineal Bulging; Rectal Bulging; Molding Noted; Presenting Part Visible; with Pushing LaborFlag: Labor Datetime: 01/18/2022 14:53 COMMUNICATION Communication: Provider at Bedside Datetime: 01/18/2022 14:30 Temperature (C): 36.6 UTERINE ACTIVITY Monitor Mode: External Monitor Interventions for UA: [place] Adjusted Quality: Moderate Resting Tone (Palpate): Relaxed Contraction Comments: unable to evaluate FHR Baseline Rate : 140 FHR Baseline Changes: No Baseline Change Variability: Minimal - Undetectable to <=5 bpm Decelerations: Variable Actions for Decelerations: IV Bolus; Provider Notified; Other Category: Category II Patient Position/Activity: High Fowlers Datetime: 01/18/2022 14:05 VAGINAL EXAM Dilatation (cm): 10.0 Effacement (%): 100 Station: 1 Exam by: Dr. Mendoza Vaginal Exam Comments: Pt in high fowlers allowing gravity to descend baby. Will start pushing shor tly I/O Interventions: Ice Chips Given Communication Comments: Dr. Mendoza Here to check pt Datetime: 01/18/2022 14:00 Frequency (min): 2-3 Duration (sec): 70-100 Pattern: Normal: <= 5 Contractions in 10 Minutes ASSESSMENT A Monitor Mode: [place] Interventions for FHR: Ultrasound Adjusted Comments: Notified provider of late decels Datetime: 01/18/2022 13:44 PATIENT CARE IV/Blood Work: IV Bolus Started Notification Reason: Status Datetime: 01/18/2022 12:30 Accelerations: None Oxygen Method: Room Air Datetime: 01/18/2022 11:50 ANESTHESIA Anesthesia Plans: Epidural Epidural Procedure Other: Single Dose Datetime: 01/18/2022 11:41 Epidural Procedure: Completed Datetime: 01/18/2022 11:31 Anesthesia Comments: Lidocaine Datetime: 01/18/2022 11:22 Respirations: 16 PROCEDURE TIME OUT Procedure Verify: Correct Patient Identity; Correct Side and Site are Marked; Accurate Procedure Co nsent Form; Agreement on Procedure to be Done; Correct Patient Position Epidural Positioning: Sitting Datetime: 01/18/2022 10:51 Medication Comments: Nitrous gas started Datetime: 01/18/2022 10:34 Patient Care Comments: With peanut ball Datetime: 01/18/2022 09:40 MEDICATIONS Cervical Ripening Agents: Cytotec @ Datetime: 01/18/2022 06:09 Membranes Ruptured Date/Time: 01/18/2022 03:30 Membranes Rupture Method: Spontaneous Amniotic Fluid Color: Clear Amniotic Fluid Amount: Moderate Amniotic Fluid Odor: Normal
[2022-01-20] MEDS ORDERED: ENOXAPARIN 150 MG/ML SYRINGE SUBQ SCH (19:00)
== END 2022-01-20 13:07 | disposition home or self-care (01) | DRG 806 ==
LOC: WFO 03:51 → FBP 04:37 → WFO 05:27 → FBP 05:28
PROVIDERS: ADMIT Obstetrics & Gynecology; ATTEND Obstetrics & Gynecology Obstetrics
PROC: 10E0XZZ Delivery of Products of Conception, External Approach (ICD-10-PCS; principal; 2022-01-18)
PROC: 0KQM0ZZ Repair Perineum Muscle, Open Approach (ICD-10-PCS; 2022-01-18)
DX: O42.02 Full-term premature rupture of membranes, onset of labor within 24 hours of rupture (principal); D62 Acute posthemorrhagic anemia; Z37.0 Single live birth; O72.1 Other immediate postpartum hemorrhage; O87.0 Superficial thrombophlebitis in the puerperium; O70.1 Second degree perineal laceration during delivery; O99.344 Other mental disorders complicating childbirth; F41.9 Anxiety disorder, unspecified; Z3A.37 37 weeks gestation of pregnancy; O90.81 Anemia of the puerperium; O99.214 Obesity complicating childbirth
CPT/HCPCS: 36415; 80053; 84112; 85025; 85384; 86850; 86900; 86901; 93971; 99215; A9270; J1650; J1750; J2210; J7120

== ENCOUNTER 2022-03-15 11:44 | Outpatient (CLI) | payer OTHER, MEDICAID | END 2022-03-15 11:45 | disposition home or self-care (01) | LOC: LAB 11:44 | PROVIDERS: ATTEND Obstetrics & Gynecology | DX: I82.819 Embolism and thrombosis of superficial veins of unspecified lower extremity (principal) | CPT/HCPCS: 36415; 81241; 81599; 85300; 85303; 85306; 85598; 85613; 85732; 86147 ==

== ENCOUNTER 2022-05-12 14:47 | Emergency (ER) | payer OTHER, MEDICAID ==
[2022-05-12 14:57] VITALS: BP 135/69
--- NOTE | 2022-05-12 15:45 | ED Physician Documentation ---
History of Present Illness - Stated complaint Stated Complaint: R LEG PX - Chief complaint Chief Complaint: Ext Problem - Additonal information Additional information: 21-year-old female presents with right calf pain for the last 6-week or so. She notices occasional swelling, and prominent veins when she stands up. The tenderness tenderness on the posterior of the right calf and behind the right knee. Patient does have a history of a superficial thrombosed greater saphenous vein during her Recently and was on Eliquis for about 6 weeks in January and February and it was subsequently stopped by her OB. She had improvement in her symptoms during that time but did not completely resolve and the area of discomfort is the same as her previous Superficial thrombosis. She has not had any chest pain or shortness of breath, and no other areas of redness or swelling. She does believe she underwent a hypercoagulable work-up by her OB but is not sure. She does not currently have a PCP. Review of Systems Constitutional: reports: Reviewed and negative Cardiac: reports: Reviewed and negative Respiratory: reports: Reviewed and negative GI: reports: Reviewed and negative : reports: Reviewed and negative Skin: reports: Reviewed and negative Musculoskeletal: reports: Extremity pain, Extremity swelling PD PAST MEDICAL HISTORY - Past Medical History Past Medical History: Yes Cardiovascular: None Respiratory: None Neuro: None Endocrine/Autoimmune: None GI: None : None Musculoskeletal: None Derm: None - Present Medications Home Medications: Ambulatory Orders Medication Instructions Recorded Confirmed Apixaban [Eliquis] 5 mg PO BID #70 tablet 05/12/22 - Allergies Allergies/Adverse Reactions: Allergies Allergy/AdvReac Type Severity Reaction Status Date / Time amoxicillin Allergy Rash Verified 05/12/22 14:57 - Social History Does the pt smoke?: No Smoking Status: Never smoker PD ED PE NORMAL - Vitals Vital signs reviewed: Yes - General General: Alert and oriented X 3, No acute distress, Well developed/nourished - HEENT HEENT: Atraumatic, Pharynx benign - Cardiac Cardiac: RRR, No murmur, No gallop, No rub - Respiratory Respiratory: No respiratory distress, Clear bilaterally - Abdomen Abdomen: Normal bowel sounds, Soft - Derm Derm: Normal color, Warm and dry, No rash - Extremities Extremities: No deformity, Normal ROM s pain, Other (There is mild right posterior upper calf tenderness with prominent varicose veins, no thrombophlebitis or redness noted. There is some tenderness as well behind the right knee. No other lower extremity swelling or edema, no erythema.) Results - Vitals Vitals: Vital Signs - 24 hr 05/12/22 14:53 Temperature 36.7 C Heart Rate 56 L Respiratory 16 Rate Blood Pressure 135/69 H O2 Saturation 100 Oxygen O2 Source Room air - Rads (name of study) No standard instances Relevant Findings:: Final report received PD Medical Decision Making - ED course Complexity details: reviewed results, re-evaluated patient, considered differential, d/w patient ED course: 21-year-old female presented to us with right leg swelling as described in HPI. She does have a history of greater saphenous thrombosis during . On ultrasound today, she again has an area of thrombosed greater saphenous vein. She has no DVT. Discussed with patient that I recommend that we start her again on Eliquis and recommend follow-up with PCP, I would like her to have a hypercoagulable work-up and if negative can likely come off the anticoagulation given this is a superficial thrombosis. I did caution her on the risk of this medication as well as the potential benefits. Return precautions reviewed in detail with the patient and she was given information on establishing care with a local primary care provider. Departure - Departure Disposition: 01 Home, Self Care Clinical Impression: Superficial thrombosis of right lower extremity Condition: Good Instructions: ED Stockings Vijay Follow-Up: Cecilia Watkins PA-C [Provider Admit Priv/Credential] - Prescriptions: Apixaban [Eliquis] 5 mg PO BID #70 tablet Comments: Your ultrasound Shows a superficial thrombosis which is not a deep blood clot in the leg but this does seem to be a recurrent issue for you as it is in a similar location as prior. I am going to start you back on the Eliquis and I would like you to see a primary care provider within the next month to ensure that hypercoagulable work-up has been done and you may be able to come off of the medication at this time. You may also benefit from seeing a specialist for your varicose veins. I have listed a primary care provider who is accepting new patients for primary care, you may call their office for an appointment. Discharge Date/Time: 05/12/22 15:48
--- NOTE | 2022-05-12 15:57 | Ultrasound Report ---
PROCEDURE: Duplex Ext Veins Right INDICATIONS: right calf pain, pls r/o DVT TECHNIQUE: Real-time imaging, as well as color and pulse Doppler interrogation, were performed of the lower extr emity deep veins from the inguinal ligament to the popliteal fossa. COMPARISON: None. FINDINGS: The deep veins are normally compressible, and free of intraluminal thrombus. Color and pu lse Doppler demonstrate normal phasic intraluminal flow. There is normal augmentation response to di stal compression maneuver. Thrombosis in the distal greater saphenous vein. IMPRESSION: No deep venous thrombosis. Greater saphenous vein thrombosis. Reviewed by: Marilyn Domínguez MD on 05/12/2022 3:55 PM PDT Approved by: Marilyn Domínguez MD on 05/12/2022 3:55 PM PDT Station ID: [id number]
== END 2022-05-12 15:48 | disposition home or self-care (01) ==
LOC: ED 14:47
DX: I82.811 Embolism and thrombosis of superficial veins of right lower extremity (principal)
CPT/HCPCS: 99283; 99284

== ENCOUNTER 2023-08-13 08:15 | Outpatient (CLI) | payer OTHER, MEDICAID ==
[2023-08-13 23:09] LABS: CHLAMYDIA TRACHOMATIS DNA NEGATIVE (NEGATIVE); NEISSERIA GONORRHOEAE DNA NEGATIVE (NEGATIVE)
[2023-08-13 23:58] LABS: BACTERIAL VAGINOSIS DNA NEGATIVE (NEGATIVE); CANDIDA GLABRATA DNA NEGATIVE (NEGATIVE); CANDIDA GROUP DNA NEGATIVE (NEGATIVE); CANDIDA KRUSEI DNA NEGATIVE (NEGATIVE); TRICHOMONAS VAGINALIS DNA NEGATIVE (NEGATIVE)
== END 2023-08-13 08:30 | disposition home or self-care (01) ==
LOC: LAB.N 08:15
PROVIDERS: ATTEND Physician Assistant Medical
DX: R30.0 Dysuria (principal)
CPT/HCPCS: 81514; 87086; 87491; 87591; 87661

== ENCOUNTER 2023-09-12 08:00 | Outpatient (CLI) | payer OTHER, MEDICAID | END 2023-09-12 23:59 | disposition home or self-care (01) | LOC: LAB.N 08:00 | PROVIDERS: ATTEND Physician Assistant Medical | DX: N39.0 Urinary tract infection, site not specified (principal) | CPT/HCPCS: 87077; 87086; 87181 ==